=== PATIENT | male | born 1990 | race Caucasian/White ===

== ENCOUNTER 2018-03-31 21:49 | Emergency (ER) | payer OTHER ==
[~2018-03-31] VITALS: Ht 180.3 cm; Wt 77.1 kg
[2018-03-31 21:59] VITALS: BP 124/79
--- NOTE | 2018-03-31 22:02 | NUR ---
TO LOBBY A/W BED, AMB. BRIAN LOPES NOTED.
--- NOTE | 2018-03-31 22:31 | NUR ---
PT AMBULATED TO BED 08.
--- NOTE | 2018-03-31 22:34 | NUR ---
PT PRESENTED TO ED WITH C/O RT HAND PAIN. PT WOKE UP THIS AM WITH SWOLLEN RT HAND. PT HAD SMALL NOT ON TOP OF HAND THE DAY BEFORE AND THIS AM HAND WAS SWOLLEN. PT STATES NO OTHER COMPLAINTS. PAIN 5 MED HX: NONE
--- NOTE | 2018-03-31 23:26 | NUR ---
Dr. Quick evaluating patient at bedside.
--- NOTE | 2018-03-31 23:48 | NUR ---
X-Ray at bedside.
[2018-04-01 00:15] VITALS: BP 118/74
--- NOTE | 2018-04-01 00:15 | NUR ---
Patient discharged with v/s stable. Written and verbal after care instructions given and explained. Patient alert, oriented and verbalized understanding of instructions. Ambulatory with steady gait. All questions addressed prior to discharge. ID band removed. Patient advised to follow up with PMD. Rx of KEFLEX AND NAPROSYN given. Patient educated on indication of medication including possible reaction and side effects. Opportunity to ask questions provided and answered.
== END 2018-04-01 00:15 | disposition home or self-care (01) ==
LOC: MED 21:49
DX: L03.113 Cellulitis of right upper limb (principal)
CPT/HCPCS: 73130; 99283